=== PATIENT | female | born 1985 | race Caucasian/White ===

== ENCOUNTER 2018-06-15 19:50 | Emergency (ER) | payer OTHER ==
--- NOTE | 2018-06-15 20:23 | EDPHY ---
H & P Time Seen by Provider: 06/15/18 20:09 HPI/ROS: Chief complaint: Puncture wound to the right leg HPI: This is a medically healthy 30-year-old female who was sitting in a [place] style manner attempting to Mikael reg some connection on a garden hose. However unfortunately she had pair of scissors held in her hand in a backward fashion as she was trying to keep them closed. When the portion of the hose K way she ended up stabbing the distal 3rd of the medial aspect of the right calf just prior to admission. While it is uncomfortable she does not noted to be excessively so. Furthermore the extent of the soft tissue swelling is not getting worse that she is here. She notes no distal numbness or tingling paresthesias loss sensation. This happened at home, occurring just [employer] Reports there is no numbness or loss of sensation. Contamination: This remains a question. While the scissors themselves did not have any overt significant dirt on them, they had been the garden scissors that the family uses and had been in the mother's apron used for prune earlier in the week as it is spring FB possibility the puncture did not go through her pants leg as her pant leg was upper raised somewhat Last Td or TDAP: She is uncertain, she was told that she was up-to-date last time we do not know if that meant within the last 5 within last 10 years she will check on Sunday. Work: [She is not scheduled until Sunday. ROS Neuro: No numbness or tingling or loss of sensation Smoking Status: Never smoked Physical Exam: Gen: Well-developed. Well-nourished. No odor of alcohol. Nontoxic. Afebrile. Extremity: There is a 1.5 cm, jagged puncture wound laceration that is 3 cm deep per the patient as to the charlene of the blood in the scissors. This is located on approximately 12 cm above the medial malleolus on the medial aspect of the right calf. No bony tenderness. There is no expanding hematoma. Distal pulses are intact. Distal sensation is intact. Function: Without signs of tendon dysfunction NV Status: Intact CMS: Intact Constitutional: Initial Vital Signs Temperature (C) 36.9 C 06/15/18 20:02 Heart Rate 96 06/15/18 20:02 Respiratory Rate 14 06/15/18 20:02 Blood Pressure 116/80 06/15/18 20:02 O2 Sat (%) 96 06/15/18 20:02 O2 Delivery Mode Room Air Allergies/Adverse Reactions: No Known Allergies Allergy (Unverified 06/15/18 20:01) Home Medications: Medication Instructions Recorded Adderall 30 mg Tablet 06/15/18 Topamax 06/15/18 Medical Decision Making ED Course/Re-evaluation: Cleansed by the tech. We had discussion regarding the potential of foreign body as the scissors were not routinely cleaned. However, to adequately explore in a lavage this area would require extensive wound extension. I explained to her that we would perhaps consider that should she get infected or if she did not respond to antibiotics neck contacts. I have encouraged her not to close the area but instead to soak the area and help keep it open sores have adequate drainage. She has wash signs of infection. Differential Diagnosis: Diagnostic considerations include, but are not limited to, the following: Laceration, retained FB ,tendon injury. - Data Points Medications Given: Discontinued Medications Diphtheria/Tetanus/Acell Pertussis (Boostrix) 0.5 ml IM .ONCE ONE Stop: 06/15/18 20:45 Last Admin: 06/15/18 21:10 Dose: 0.5 ml Departure - Departure Disposition: Home, Routine, Self-Care Clinical Impression: Puncture wound of left leg excluding thigh Qualifiers: Encounter type: initial encounter Qualified Code(s): S81.832A - Puncture wound without foreign body, left lower leg, initial encounter Condition: Good Instructions: Puncture Wound (ED) Additional Instructions: Begin soaking the leg twice daily in the bathtub. 10 min. Warm soapy water. And circulating water in the vicinity of the wound as you attempt to pull it apart. This is to so as to keep it open for 2 days. Watch for signs of infection such as swelling, redness, drainage, red streaks or having a fever. If any of these develop, return immediately. Elevate the leg for most of the day but not continuously over the next 48 hr. Referrals: Mayra Cortez MD [Primary Care Provider] - As per Instructions Stand Alone Forms: Work Excuse
[2018-06-15] MEDS ORDERED: TDAP ADULT 0.5 ML INJ (BOOSTRIX) IM ONE (20:44)
[2018-06-16 03:47] VITALS: BP 116/84
== END 2018-06-15 21:14 | disposition home or self-care (01) ==
LOC: CED 19:50
DX: S81.832A Puncture wound without foreign body, left lower leg, initial encounter (principal); Z23 Encounter for immunization; W26.8XXA Contact with other sharp object(s), not elsewhere classified, initial encounter; Y92.007 Garden or yard of unspecified non-institutional (private) residence as the place of occurrence of the external cause; Y93.H2 Activity, gardening and landscaping
CPT/HCPCS: 90471-ER; 99283-ER